=== PATIENT | female | born 1975 | race Caucasian/White ===

== ENCOUNTER 2020-04-11 00:59 | Emergency (ER) | payer SELFPAY ==
[~2020-04-11] VITALS: Ht 165.1 cm; Wt 73.5 kg
[2020-04-11 01:23] VITALS: BP 173/83; Ht 165.1 cm; Wt 73.5 kg
== END 2020-04-11 06:28 | disposition left against medical advice (07) ==
LOC: ED 00:59
DX: Z53.21 Procedure and treatment not carried out due to patient leaving prior to being seen by health care provider (principal)